=== PATIENT | male | born 1985 ===

== ENCOUNTER 2023-01-29 14:28 | Emergency (ER) | payer BC ==
[2023-01-29] MEDS ORDERED: Albuterol/Ipratropium 3.0-0.5 MG/3 ML Neb Soln NEB ONE (17:29)
[2023-01-29] MEDS ORDERED: Albuterol 8 GM Inhaler INH ONE (17:30)
[2023-01-29] MEDS ORDERED: predniSONE 20 MG Tab PO ONE (17:30)
[2023-01-29] MEDS ORDERED: Cetirizine 10 MG Tab PO ONE (17:34)
== END 2023-01-29 19:31 | disposition home or self-care (01) ==
LOC: MW.ED 14:28
DX: J45.901 Unspecified asthma with (acute) exacerbation (principal); Z79.899 Other long term (current) drug therapy
CPT/HCPCS: 71046; 99285; A9270; 99283; J7620-GY